=== PATIENT | female | born 1995 | race Caucasian/White ===

== ENCOUNTER 2021-11-29 23:21 | Emergency (ER) | payer OTHER ==
[2021-11-30 01:17] LABS: BASOPHIL 0.3 % (0-2); HCT 36.9 % (37.0-47.0); HGB 11.6 g/dl (12.5-16.0); LYMPHOCYTE 27.9 % (15-48); MCH 27.5 pg (25.0-31.0); MCHC 31.4 g/dL (32.0-36.0); MCV 87.4 fL (78.0-100.0); NEUTROPHIL 65.4 % (41-80); NRBC 0; PLT 228 K/uL (150-400); RBC 4.22 M/uL (4.20-5.40); RDW 13.5 % (11.5-14.0)
[2021-11-30 01:45] LABS: BUN 11 mg/dL (7-18); BUN/CREAT RATIO (CALC) 15.1 RATIO; CHLORIDE 104 mmol/L (98-107); CO2 (BICARBONATE) 23 mmol/L (21-32); CREATININE 0.73 mg/dL (0.51-0.95); GLUCOSE 85 mg/dL (74-106); POTASSIUM 3.7 mmol/L (3.5-5.1)
[2021-11-30] MEDS ORDERED: VENTOLIN HFA IN18 GM INH (03:36)
[2021-11-30] MEDS ORDERED: PULMICORT FLE180 MCG INH (03:36)
== END 2021-11-30 03:51 | disposition home or self-care (01) ==
LOC: FER 23:21 → EDBD 23:21 → FER 11-30 03:51
PROVIDERS: Emergency Medicine Emergency Medical Services
DX: R06.02 Shortness of breath (principal); U09.9 Post COVID-19 condition, unspecified; I10 Essential (primary) hypertension
CPT/HCPCS: 36415; 71275; 80048; 83880; 84484; 85025; 85379; Q9967